=== PATIENT | male | born 1945 | race Caucasian/White ===

== ENCOUNTER 2020-05-15 18:17 | Emergency (ER) | payer MEDICARE, OTHER ==
[~2020-05-15 18:17] MED LIST: ASPIRIN EC81 MG PO; BACLOFEN 10MG T10 MG PO; CHLORTHALIDONE25 MG PO; COMPAZINE10 MG PO; CYPROHEPTADINE H4 MG PO; DEXAMETHASONE 2M2 MG PO; DIOVAN HCT 1601 EAC1 PO; HYDROCODON-ACE1 EAC4 PO; K-DUR20 MEQ PO; LEVAQUIN500 MG PO; LOPRESSOR25 MG PO; MAG-OXIDE 400M400 MG PO; MAGNESIUM400 MG PO; MEGACE ORA6 TSP/1 OZ PO; MEGACE40 MG PO; METRONIDAZOLE500 MG PO; MIRALAX 238GM238 GM PO; NEURONTIN100 MG PO; NEURONTIN300 MG PO; NORCO 5-325 TA1 EACH PO; OMEPRAZOLE40 MG PO; PANTOPRAZOLE SO40 MG PO; PLAVIX75 M1 PO; PLAVIX75 MG PO; PROMETHAZINE HC25 MG PR; PYRIDIUM100 MG PO; ZOCOR20 MG PO; ZOFRAN8 MG PO
[2020-05-15 20:19] LABS: BASOPHIL 1.3 % (0-2); EOSINOPHIL 6.6 % (0-7); HCT 34.9 % (42.0-52.0); HGB 12.2 g/dl (13.2-18.0); MCH 36.1 pg (25.0-31.0); MCV 103.3 fL (78.0-100.0); MONOCYTE 10.1 % (0-12); MPV 10.6 fL (6.0-9.5); NEUTROPHIL 51.6 % (41-80); NRBC 0; PLT 165 K/uL (150-400); RBC 3.38 M/uL (4.70-6.00); RDW 12.5 % (11.5-14.0); WBC 4.7 K/uL (4.0-10.5)
[2020-05-15 20:41] LABS: ALBUMIN 3.3 g/dL (3.4-5.0); BILIRUBIN - TOTAL 0.4 mg/dL (0.2-1.0); BUN/CREAT RATIO (CALC) 16.1 RATIO; CREATININE 0.87 mg/dL (0.67-1.17); GLOBULIN (CALCULATION) 3.3 g/dL; POTASSIUM 3.6 mmol/L (3.5-5.1); TOTAL PROTEIN 6.6 g/dL (6.4-8.2)
[2020-05-15 20:46] LABS: INR 1.12 (0.9-1.2); PROTHROMBIN TIME 13.7 SECONDS (11.4-13.6)
[2020-05-15 21:14] LABS: CORONAVIRUS 2019 SARS-COV-2 NEGATIVE (NEGATIVE); INFLUENZA A NAA NEGATIVE (NEGATIVE)
== END 2020-05-15 23:42 | disposition other institution (70) ==
LOC: FER 18:17
PROVIDERS: Emergency Medicine
DX: G93.89 Other specified disorders of brain (principal); I10 Essential (primary) hypertension; I25.2 Old myocardial infarction; Z95.5 Presence of coronary angioplasty implant and graft; Z87.891 Personal history of nicotine dependence; Z20.822 Contact with and (suspected) exposure to COVID-19
CPT/HCPCS: 36415; 70450; 71045; 80053; 84443; 85025; 85610; U0002

== ENCOUNTER 2020-07-13 13:42 | Inpatient (IN) | payer MEDICARE, OTHER ==
[2020-07-13 14:42] LABS: BASOPHIL 0.7 % (0-2); EOSINOPHIL 0.7 % (0-7); HCT 36.4 % (42.0-52.0); HGB 12.2 g/dl (13.2-18.0); LYMPHOCYTE 19.6 % (15-48); MCH 36.1 pg (25.0-31.0); MCHC 33.5 g/dL (32.0-36.0); MCV 107.7 fL (78.0-100.0); MONOCYTE 8.3 % (0-12); MPV 9.9 fL (6.0-9.5); NEUTROPHIL 67.8 % (41-80); NRBC 0; PLT 152 K/uL (150-400); RBC 3.38 M/uL (4.70-6.00); RDW 13.7 % (11.5-14.0); WBC 5.6 K/uL (4.0-10.5)
[2020-07-13 14:57] LABS: INR 1.08 (0.9-1.2); PROTHROMBIN TIME 13.3 SECONDS (11.4-13.6); PTT 34.3 SECONDS (22.2-34.7)
[2020-07-13 15:02] LABS: ALBUMIN 2.7 g/dL (3.4-5.0); BILIRUBIN - TOTAL 0.5 mg/dL (0.2-1.0); BUN/CREAT RATIO (CALC) 15.3 RATIO; CREATININE 0.72 mg/dL (0.67-1.17); GLOBULIN (CALCULATION) 3.9 g/dL; MAGNESIUM 1.3 mg/dL (1.8-2.4); POTASSIUM 3.6 mmol/L (3.5-5.1); TOTAL PROTEIN 6.6 g/dL (6.4-8.2)
[2020-07-13 15:14] LABS: LACTIC ACID 2.1 mmol/L (0.4-1.9)
[2020-07-13 16:12] LABS: BILIRUBIN NEGATIVE (NEGATIVE); BLOOD NEGATIVE Ery/uL (NEGATIVE); COLOR YELLOW (YELLOW); GLUCOSE (U) NORMAL (NORMAL); LEUKOCYTES NEGATIVE Leu/uL (NEGATIVE); NITRITE NEGATIVE (NEGATIVE); PROTEIN TRACE (LOW) mg/dL (NEGATIVE); SPECIFIC GRAVITY 1.025 (1.001-1.030); UROBILINOGEN 0.2 mg/dL (0.2-1.0)
[2020-07-13 16:14] LABS: CLARITY CLOUDY (CLEAR)
[2020-07-13 16:18] LABS: AMORPHOUS PHOSPHATE CRYSTALS MODERATE; BACTERIA TRACE; MUCOUS TRACE
[2020-07-13] MEDS ORDERED: SYNTHROID25 MCG PO (19:30)
[2020-07-13] MEDS ORDERED: FOLIC ACID1 MG PO (19:31)
[2020-07-13] MEDS ORDERED: ZOCOR40 MG PO (19:32)
[2020-07-13] MEDS ORDERED: NEXIUM40 MG PO (19:32)
[2020-07-13] MEDS ORDERED: MAG-OXIDE 400M400 MG PO (19:37)
[2020-07-13] MEDS ORDERED: LOPRESSOR25 MG PO (19:37)
[2020-07-13] MEDS ORDERED: VITAMIN C WITH500 MG PO (19:40)
[2020-07-13] MEDS ORDERED: MULTI VITAMIN (19:41)
[2020-07-13] MEDS ORDERED: VITAMIN D3 PO (19:43)
[2020-07-13] MEDS ORDERED: TUMS DUAL ACTI1 EACH PO (19:44)
[2020-07-13] MEDS ORDERED: TUMS200 MG PO (19:44)
[2020-07-14 06:03] LABS: BASOPHIL 0.3 % (0-2); EOSINOPHIL 0 % (0-7); HGB 11.7 g/dl (13.2-18.0); LYMPHOCYTE 9.5 % (15-48); MCH 36.7 pg (25.0-31.0); MCHC 34.4 g/dL (32.0-36.0); MCV 106.6 fL (78.0-100.0); MONOCYTE 1.6 % (0-12); MPV 9.4 fL (6.0-9.5); NEUTROPHIL 86.2 % (41-80); NRBC 0; PLT 153 K/uL (150-400); RBC 3.19 M/uL (4.70-6.00); RDW 13.2 % (11.5-14.0); WBC 3.7 K/uL (4.0-10.5)
[2020-07-14 06:16] LABS: INR 1.08 (0.9-1.2); PROTHROMBIN TIME 13.3 SECONDS (11.4-13.6)
[2020-07-14 06:25] LABS: ALBUMIN 2.6 g/dL (3.4-5.0); BILIRUBIN - TOTAL 0.4 mg/dL (0.2-1.0); BUN/CREAT RATIO (CALC) 18.5 RATIO; CREATININE 0.65 mg/dL (0.67-1.17); GLOBULIN (CALCULATION) 3.9 g/dL; PHOSPHORUS 2.8 mg/dL (2.6-4.7); POTASSIUM 3.9 mmol/L (3.5-5.1); TOTAL PROTEIN 6.5 g/dL (6.4-8.2)
[2020-07-14 06:27] LABS: MAGNESIUM 1.6 mg/dL (1.8-2.4)
[2020-07-15 03:38] LABS: BASOPHIL 0.1 % (0-2); EOSINOPHIL 0.1 % (0-7); HCT 32.3 % (42.0-52.0); LYMPHOCYTE 9.2 % (15-48); MCH 35.7 pg (25.0-31.0); MCHC 34.1 g/dL (32.0-36.0); MCV 104.9 fL (78.0-100.0); MONOCYTE 5.1 % (0-12); MPV 9.7 fL (6.0-9.5); NEUTROPHIL 84.7 % (41-80); NRBC 0; PLT 178 K/uL (150-400); RBC 3.08 M/uL (4.70-6.00); RDW 13.1 % (11.5-14.0)
[2020-07-15 03:41] LABS: WBC 7.9 K/uL (4.0-10.5)
[2020-07-15 03:55] LABS: BUN/CREAT RATIO (CALC) 20.3 RATIO; CREATININE 0.79 mg/dL (0.67-1.17); POTASSIUM 3.7 mmol/L (3.5-5.1)
[2020-07-15 03:56] LABS: MAGNESIUM 2.1 mg/dL (1.8-2.4)
[2020-07-16 04:51] LABS: BASOPHIL 0.2 % (0-2); EOSINOPHIL 0 % (0-7); HCT 30.5 % (42.0-52.0); HGB 10.3 g/dl (13.2-18.0); LYMPHOCYTE 15.4 % (15-48); MCH 36.3 pg (25.0-31.0); MCHC 33.8 g/dL (32.0-36.0); MCV 107.4 fL (78.0-100.0); MONOCYTE 4.9 % (0-12); MPV 9.9 fL (6.0-9.5); NRBC 0; PLT 175 K/uL (150-400); RBC 2.84 M/uL (4.70-6.00); RDW 13.3 % (11.5-14.0); WBC 10.7 K/uL (4.0-10.5)
[2020-07-16 05:10] LABS: ALBUMIN 2.7 g/dL (3.4-5.0); BILIRUBIN - TOTAL 0.2 mg/dL (0.2-1.0); BUN/CREAT RATIO (CALC) 21.8 RATIO; CREATININE 0.87 mg/dL (0.67-1.17); GLOBULIN (CALCULATION) 3.4 g/dL; POTASSIUM 3.5 mmol/L (3.5-5.1); TOTAL PROTEIN 6.1 g/dL (6.4-8.2)
[2020-07-16 05:15] LABS: MAGNESIUM 1.5 mg/dL (1.8-2.4)
[2020-07-16] MEDS ORDERED: DECADRON4 MG PO (12:29)
--- NOTE | 2020-07-16 13:41 | NUR ---
07/16/20 [facility] is currently seeing Mr. Pineda. He wishes to continue with [facility] and is aware of affliation. [facility] was notified of patient's admission and discharge for today. - Mr. Pineda has a rw, wc, 3in1, and s. chair. - A report was given to MS PATRICIA Parnell.
== END 2020-07-16 14:07 | disposition home health service (06) | DRG 543 ==
LOC: FER 13:42 → FMS 16:43
PROVIDERS: Emergency Medicine; Nurse Practitioner; ADMIT Internal Medicine
DX: C79.51 Secondary malignant neoplasm of bone (principal); C34.90 Malignant neoplasm of unspecified part of unspecified bronchus or lung; M62.81 Muscle weakness (generalized); K21.9 Gastro-esophageal reflux disease without esophagitis; G47.33 Obstructive sleep apnea (adult) (pediatric); I10 Essential (primary) hypertension; Z20.822 Contact with and (suspected) exposure to COVID-19; E83.42 Hypomagnesemia; I95.1 Orthostatic hypotension; Z95.5 Presence of coronary angioplasty implant and graft; M48.07 Spinal stenosis, lumbosacral region; M51.37 Other intervertebral disc degeneration, lumbosacral region; Z66 Do not resuscitate
CPT/HCPCS: 36415; 70450; 71250; 72158; 80048; 80053; 81001; 82550; 82553; 83605; 83735; 84100; 84484; 85025; 85610; 85730; 87040; 87088; 93005; 97116; 97162; 97166; 97530; 97530-GP; G0378; J0696; J1100; J1642; J1650; J3475; J7040; U0002

== ENCOUNTER 2020-08-17 20:04 | Inpatient (IN) | payer MEDICARE, OTHER ==
[~2020-08-17 20:04] MED LIST changes: +DECADRON4 MG PO; +FOLIC ACID1 MG PO; +MULTI VITAMIN; +NEXIUM40 MG PO; +SYNTHROID25 MCG PO; +TUMS DUAL ACTI1 EACH PO; +TUMS200 MG PO; +VITAMIN C WITH500 MG PO; +VITAMIN D3 PO; +ZOCOR40 MG PO
[2020-08-17 20:54] LABS: BASOPHIL 0.4 % (0-2); EOSINOPHIL 0.6 % (0-7); HCT 36.8 % (42.0-52.0); HGB 12.9 g/dl (13.2-18.0); LYMPHOCYTE 19.9 % (15-48); MCH 37.1 pg (25.0-31.0); MCHC 35.1 g/dL (32.0-36.0); MCV 105.7 fL (78.0-100.0); MPV 9.8 fL (6.0-9.5); NEUTROPHIL 72.5 % (41-80); NRBC 0.4; PLT 100 K/uL (150-400); RBC 3.48 M/uL (4.70-6.00); RDW 14.6 % (11.5-14.0); WBC 4.7 K/uL (4.0-10.5)
[2020-08-17 20:59] LABS: TOTAL CELL COUNT 100
[2020-08-17 21:03] LABS: ALBUMIN 2.3 g/dL (3.4-5.0); BILIRUBIN - TOTAL 0.9 mg/dL (0.2-1.0); BUN/CREAT RATIO (CALC) 42.6 RATIO; CREATININE 0.61 mg/dL (0.67-1.17); POTASSIUM 3.1 mmol/L (3.5-5.1); TOTAL PROTEIN 5.3 g/dL (6.4-8.2)
[2020-08-17 21:08] LABS: LACTIC ACID 2.9 mmol/L (0.4-1.9)
[2020-08-17 21:15] LABS: BAND 6 % (0-10); LYMPHOCYTE(M) 21 % (15-48); MONOCYTE(M) 5 % (0-12); NEUTROPHILS(M) 68 % (41-80)
[2020-08-17 21:16] LABS: PLATELET ESTIMATE DECREASED; PLATELET MORPHOLOGY GIANT
[2020-08-17 21:23] LABS: CORONAVIRUS 2019 SARS-COV-2 NEGATIVE (NEGATIVE); INFLUENZA A NAA NEGATIVE (NEGATIVE)
[2020-08-17 21:49] LABS: BILIRUBIN NEGATIVE (NEGATIVE); BLOOD TRACE-INTACT Ery/uL (NEGATIVE); CLARITY CLEAR (CLEAR); COLOR YELLOW (YELLOW); GLUCOSE (U) NORMAL (NORMAL); LEUKOCYTES NEGATIVE Leu/uL (NEGATIVE); NITRITE NEGATIVE (NEGATIVE); PROTEIN TRACE (LOW) mg/dL (NEGATIVE); SPECIFIC GRAVITY 1.025 (1.001-1.030); UROBILINOGEN 0.2 mg/dL (0.2-1.0); pH 5.5 (5.0-9.0)
[2020-08-17 21:57] LABS: AMORPHOUS URATES CRYSTALS TRACE; BACTERIA TRACE; MUCOUS LARGE; URINARY RBC RARE; URINARY WBC RARE
[2020-08-18 02:32] LABS: MAGNESIUM 0.8 mg/dL (1.8-2.4); PHOSPHORUS 3.7 mg/dL (2.6-4.7)
[2020-08-18] MEDS ORDERED: TUMS200 MG PO (02:32)
[2020-08-18] MEDS ORDERED: VITAMIN D3250 MC2 PO (02:33)
[2020-08-18] MEDS ORDERED: ASCORBIC ACID500 MG PO (02:34)
[2020-08-18] MEDS ORDERED: ONE-DAILY MULT1 EACH PO (02:34)
[2020-08-18] MEDS ORDERED: MAGNESIUM200 MG PO (02:35)
[2020-08-18] MEDS ORDERED: TOPROL XL 25MG25 MG PO (02:35)
[2020-08-18] MEDS ORDERED: ZOCOR40 MG PO (02:36)
[2020-08-18] MEDS ORDERED: ESOMEPRAZOLE SO40 MG PO (02:37)
[2020-08-18] MEDS ORDERED: FOLIC ACID1 MG PO (02:37)
[2020-08-18] MEDS ORDERED: DEXAMETHASONE 2M2 MG PO (02:38)
[2020-08-18] MEDS ORDERED: LEVOTHYROXINE25 MC1 PO (02:38)
[2020-08-18 07:27] LABS: LACTIC ACID 1.6 mmol/L (0.4-1.9)
--- NOTE | 2020-08-18 15:14 | NUR ---
1301,SINGLE LUMEN PICC PLACED IN THE RIGHT IJ BY DR WADE. [address] A [address] WITH CONTRAST OF THE LUNG,SAVANNAH SUMMERS AND I WENT WITH PATIENT, 1500 RADIOLOGIST CALLED AND REPORTED THAT MR CALDERON HAS BILATERAL PULMONARY EMBOLI. IMMEDIATELY CALL DR WADE OF RESULTS, AND WILL AWAIT NEW ORDERS 1515 CALLED PHU, MR CALDERON'S SON, OF THE CT SCAN REPORT.
[2020-08-19 07:21] LABS: BASOPHIL 0.2 % (0-2); EOSINOPHIL 0 % (0-7); HCT 27.2 % (42.0-52.0); HGB 9.3 g/dl (13.2-18.0); LYMPHOCYTE 6.1 % (15-48); MCH 37.5 pg (25.0-31.0); MCHC 34.2 g/dL (32.0-36.0); MCV 109.7 fL (78.0-100.0); MONOCYTE 2.8 % (0-12); MPV 9.9 fL (6.0-9.5); NEUTROPHIL 83.1 % (41-80); RBC 2.48 M/uL (4.70-6.00); RDW 14.6 % (11.5-14.0); WBC 5.3 K/uL (4.0-10.5)
[2020-08-19 07:23] LABS: NRBC 0; PLT 87 K/uL (150-400)
[2020-08-19 07:30] LABS: ALBUMIN 1.7 g/dL (3.4-5.0); BILIRUBIN - TOTAL 0.3 mg/dL (0.2-1.0); BUN/CREAT RATIO (CALC) 29.6 RATIO; CREATININE 0.54 mg/dL (0.67-1.17); GLOBULIN (CALCULATION) 3.4 g/dL; POTASSIUM 3.5 mmol/L (3.5-5.1); TOTAL PROTEIN 5.1 g/dL (6.4-8.2)
[2020-08-20 05:31] LABS: HCT 25.3 % (42.0-52.0); HGB 8.8 g/dl (13.2-18.0); MCH 37.8 pg (25.0-31.0); MCHC 34.8 g/dL (32.0-36.0); MCV 108.6 fL (78.0-100.0); MPV 10.3 fL (6.0-9.5); RBC 2.33 M/uL (4.70-6.00); RDW 14.5 % (11.5-14.0); WBC 6.2 K/uL (4.0-10.5)
[2020-08-20 05:53] LABS: BUN/CREAT RATIO (CALC) 28.6 RATIO; CREATININE 0.7 mg/dL (0.67-1.17); POTASSIUM 3.4 mmol/L (3.5-5.1)
--- NOTE | 2020-08-20 12:38 | NUR ---
08/20/20 Mr. Pineda lives with his spouse. He is current with [facility] and wishes to continue services. Affliation is understood. A referal was made to [facility] via [facility]. Mr. Pineda has a cane, C-PAP, rw, 3in1, s.chair and wc. He is currently using 02; will monitor for home 02 needs.
--- NOTE | 2020-08-21 16:08 | NUR ---
08/21/20 A referral was made to [facility] for 02 in anticipation of discharge for 08/22/20. Report given to ADAM Adame RN.
[2020-08-22 06:32] LABS: BASOPHIL 0.4 % (0-2); EOSINOPHIL 0.2 % (0-7); HCT 25.2 % (42.0-52.0); HGB 8.5 g/dl (13.2-18.0); LYMPHOCYTE 16.5 % (15-48); MCH 37.3 pg (25.0-31.0); MCHC 33.7 g/dL (32.0-36.0); MCV 110.5 fL (78.0-100.0); MONOCYTE 4.8 % (0-12); MPV 10.6 fL (6.0-9.5); NEUTROPHIL 70.4 % (41-80); NRBC 1.5; RBC 2.28 M/uL (4.70-6.00); RDW 14.8 % (11.5-14.0); WBC 4.5 K/uL (4.0-10.5)
[2020-08-22 06:38] LABS: PLT 80 K/uL (150-400)
[2020-08-22 06:57] LABS: BUN/CREAT RATIO (CALC) 28.2 RATIO; CREATININE 0.71 mg/dL (0.67-1.17); POTASSIUM 3.9 mmol/L (3.5-5.1)
[2020-08-22] MEDS ORDERED: ZYVOX600 MG PO (08:07)
[2020-08-22] MEDS ORDERED: ELIQUIS5 MG PO (08:07)
[2020-08-22] MEDS ORDERED: CEFDINIR300 MG PO (08:07)
[2020-08-22] MEDS ORDERED: PREDNISONE 20MG20 MG PO (08:08)
[2020-08-22] MEDS ORDERED: LASIX20 MG PO (08:48)
--- NOTE | 2020-08-22 12:13 | NUR ---
PT VITALS [facility]DL, REFUSING TO WEAR OXYGEN, PULSE OX 92%. PT ALERT AND ORIENTED, DUAGHTER IN LAW TOOK PATIENT HOME VIA CAR. PT TRANSPORTED OUT IN WHEELCHAIR WITH HOME O2 NOT ON BUT PLACED IN VEHICLE. PT AND DAUGHTER IN LAW EDUCATED ON MEDICATIONS- NEW AND CHANGED AND STOPPED. VERBALIZED UNDERSTANDING AND GIVEN PRINT OUTS. FOLLOW UP APPT MADE WITH PCP, AND PLACED IN DISCHARGE PAPERWORK.
== END 2020-08-22 12:00 | disposition home health service (06) | DRG 853 ==
LOC: FER 20:04 → FICU 08-18 01:27 → FTCU 08-20 08:10
PROVIDERS: Allergy & Immunology Allergy; Emergency Medicine Emergency Medical Services; Nurse Practitioner; ADMIT Hospitalist
PROC: 02HV33Z Insertion of Infusion Device into Superior Vena Cava, Percutaneous Approach (ICD-10-PCS; principal; 2020-08-18)
PROC: B548ZZA Ultrasonography of Superior Vena Cava, Guidance (ICD-10-PCS; 2020-08-18)
PROC: 3E043XZ Introduction of Vasopressor into Central Vein, Percutaneous Approach (ICD-10-PCS; 2020-08-18)
PROC: 05PY03Z Removal of Infusion Device from Upper Vein, Open Approach (ICD-10-PCS; 2020-08-21)
PROC: 0JPT0WZ Removal of Totally Implantable Vascular Access Device from Trunk Subcutaneous Tissue and Fascia, Open Approach (ICD-10-PCS; 2020-08-21)
DX: A41.9 Sepsis, unspecified organism (principal); R65.21 Severe sepsis with septic shock; J18.9 Pneumonia, unspecified organism; J96.01 Acute respiratory failure with hypoxia; I26.99 Other pulmonary embolism without acute cor pulmonale; T82.868A Thrombosis due to vascular prosthetic devices, implants and grafts, initial encounter; E87.6 Hypokalemia; E83.42 Hypomagnesemia; Z66 Do not resuscitate; E78.5 Hyperlipidemia, unspecified; Z20.822 Contact with and (suspected) exposure to COVID-19; I10 Essential (primary) hypertension; I25.2 Old myocardial infarction; Z95.5 Presence of coronary angioplasty implant and graft; Z98.890 Other specified postprocedural states; Z79.899 Other long term (current) drug therapy; Z85.830 Personal history of malignant neoplasm of bone; Z85.118 Personal history of other malignant neoplasm of bronchus and lung; Z92.21 Personal history of antineoplastic chemotherapy; Y95 Nosocomial condition; Y83.1 Surgical operation with implant of artificial internal device as the cause of abnormal reaction of the patient, or of later complication, without mention of misadventure at the time of the procedure
CPT/HCPCS: 36415; 36600; 70450; 71045; 71250; 71275; 80048; 80053; 80202; 81001; 82803; 83605; 83690; 83735; 84100; 84145; 84484; 85025; 85379; 87040; 87070; 87088; 87205; 93005; 94640; 96372; 97110; 97116; 97162; 97166; 97530; 97530-GP; 97535; C9113; J0692; J1642; J1650; J2405; J2930; J3010; J3370; J3475; J7030; J7050; J7120; J7512; Q9967; U0002